=== PATIENT | male | born 1940 | race Caucasian/White ===

== ENCOUNTER → 2019-10-26 | Outpatient (CLI) | payer MEDICARE ==
--- NOTE | 2019-10-26 10:17 | XR ---
EXAMINATION TYPE: XR ribs bilat w pa chest xray DATE OF EXAM: 10/26/2019 COMPARISON: Chest x-ray 06/27/2016 HISTORY: Rib pain TECHNIQUE: Right ribs are examined in 2 projections. Left ribs are examined in 2 projections. Exam is supplemented with a frontal chest. FINDINGS: Heart size is normal. Pulmonary vasculature is normal. The lungs are clear. No pneumothorax is evident. No free air is under the diaphragm. There is a minimally displaced rib fracture of the anterior lateral right ninth rib. No additional ri b fractures are evident. IMPRESSION: 1. Minimally displaced anterior lateral right ninth rib fracture.
== END ==
LOC: RADXRYALE 09:50
PROVIDERS: ATTEND Internal Medicine
DX: S22.31XA Fracture of one rib, right side, initial encounter for closed fracture (principal)
CPT/HCPCS: 71111

== ENCOUNTER → 2020-04-23 | Outpatient (CLI) | payer MEDICARE ==
[2020-04-23 14:48] LABS: African American GFR (CKD) >90 (>60 ml/min/1.73 sqM); Blood Urea Nitrogen 15 mg/dL (9-20); Non-African American GFR(CKD) 82 (>60 ml/min/1.73 sqM)
--- NOTE | 2020-04-23 15:34 | CT ---
EXAMINATION TYPE: CT chest abdomen w con DATE OF EXAM: 04/23/2020 COMPARISON: CT chest 623 HISTORY: SOB CT DLP: 675 mGycm CONTRAST: CT scan of the chest, abdomen is performed with Oral Contrast and with IV Contrast, patient injected with 100 mL of Isovue 300. CT Chest: LUNGS: Calcified pleural plaques are seen bilaterally. The lungs are clear and free of infiltrate or atelectasis. No pulmonary nodule or mass is detected. No pleural effusion or CT evidence of interst itial lung disease. MEDIASTINUM: Thoracic aorta is of normal caliber. The heart is not enlarged. No evidence for media stinal mass or adenopathy. HILAR STRUCTURES: No evidence for mass. No hilar adenopathy is appreciated. OTHER: No significant abnormality. CONTRAST CT ABDOMEN FINDINGS: LIVER/GB: No calcified gallstones. No space occupying hepatic lesion. Biliary tree is of normal ca liber. PANCREAS: No inflammation. No distinct mass. SPLEEN: There is splenomegaly measuring 14 cm craniocaudal dimension. No lesion seen. ADRENALS: No nodule. No thickening. KIDNEYS/BLADDER: No hydronephrosis. No nephrolithiasis. No disctinct renal mass. BOWEL: Normal appendix. Normal bowel caliber. No inflammation. LYMPH NODES: No greater than 1cm abdominal or pelvic lymph nodes are appreciated. AORTA: No significant abnormality. OSSEOUS STRUCTURES: No significant abnormality is seen. OTHER: No significant additional abnormality is seen. IMPRESSION: 1. Splenomegaly. 2. Asbestos related pleural disease.
== END | disposition home or self-care (01) ==
LOC: RADCTMAIN 14:14
PROVIDERS: ATTEND Internal Medicine
DX: R16.1 Splenomegaly, not elsewhere classified (principal); J61 Pneumoconiosis due to asbestos and other mineral fibers; R05 Cough
CPT/HCPCS: 82565; 84520; 71260; 74160; 36415; Q9967

== ENCOUNTER → 2022-02-04 | Outpatient (CLI) | payer MEDICARE ==
--- NOTE | 2022-02-04 13:52 | XR ---
EXAMINATION TYPE: PA chest and left rib series, 5 views DATE OF EXAM: 02/04/2022 Comparison: 10/26/2019 Clinical History: 81-year-old male [id number] PLEURODYNIA Findings: Heart normal size. Aorta within normal limits. Focal right lower lung opacity. Some pleural-based calcifications overlying the left hemidiaphragm. No displaced left rib fracture se en. Relative upper lung lucencies. Atherosclerotic arch calcifications. Impression: 1. COPD with mild emphysema. Scattered pleural plaques, correlate for asbestos related pleural diseas e. 2. Slightly more pronounced focal opacity at the right lower lung. CT follow-up recommended to ensure stability compared to 04/23/2020 and exclude any underlying suspicious enlarging nodule. 3. No displaced left rib fracture.
== END | disposition home or self-care (01) ==
LOC: RADXRYALE 11:59
PROVIDERS: ATTEND Internal Medicine
DX: J43.9 Emphysema, unspecified (principal); R91.8 Other nonspecific abnormal finding of lung field

== ENCOUNTER → 2022-02-18 | Outpatient (CLI) | payer MEDICARE ==
[2022-02-18 07:52] LABS: African American GFR (CKD) >90 (>60 ml/min/1.73 sqM); Blood Urea Nitrogen 29 mg/dL (9-20); Non-African American GFR(CKD) 84 (>60 ml/min/1.73 sqM)
--- NOTE | 2022-02-18 08:59 | CT ---
EXAMINATION TYPE: CT chest w con DATE OF EXAM: 02/18/2022 COMPARISON: CT dated 04/23/2020 HISTORY: Pleural plaque with presence of asbestos CT DLP: 168.4 mGycm Automated exposure control for dose reduction was used. TECHNIQUE: CT scan of the chest is performed with IV Contrast, patient injected with 100 mL of Isovue 300. FINDINGS: LUNGS: Redemonstration of the previously seen scattered bilateral pulmonary partially calcified pleur al plaques, likely representing sequela of asbestos related pulmonary disease. Some of the plaques de monstrate progressive calcification within. Mild centrilobular emphysematous changes mainly seen in t he upper lobes. Stable 6 mm nodule along the transverse fissure. No new or progressive lung nodule. P atent trachea and main bronchi. No pleural effusion. MEDIASTINUM: Scattered subcentimeter mediastinal lymph nodes, stable. No progressive lymphadenopathy in the chest. No gross cardiomegaly. Coronary and arterial atherosclerotic calcifications. No pericar dial effusion. OTHER: Enlarged spleen measuring up to 13.6 cm. Right renal cyst measuring up to 3.2 cm, not complet mani included in the scan. Market degenerative changes of the lower cervical and thoracic spine. Progr essive T6 vertebral body collapse with sclerotic changes and anterior wedging, progressed compared to the previous CT scan, possibly chronic, please correlate clinically. IMPRESSION: Scattered bilateral partially calcified pleural plaques, likely representing asbestos-related lung di sease. No new suspicious or progressive lung nodule identified. Mild COPD changes. Other interval denita nges and incidental findings with recommendations as described above.
== END | disposition home or self-care (01) ==
LOC: RADCTMAIN 06:45
PROVIDERS: ATTEND Internal Medicine
DX: J44.9 Chronic obstructive pulmonary disease, unspecified (principal); J94.8 Other specified pleural conditions
CPT/HCPCS: 82565; 84520; 71260; 36415; Q9967